=== PATIENT | male | born 1950 | race Caucasian/White ===

== ENCOUNTER 2022-05-27 04:33 | Day surgery (SDC) | payer OTHER, BC ==
[2022-05-25 14:34] VITALS: BMI 31.4
[2022-05-27 12:33] VITALS: TEMP 97
[2022-05-27 13:19] VITALS: BP 113/50; PULSE 72; RESP 18
== END 2022-05-27 13:25 | disposition home or self-care (01) ==
LOC: JASU-ENDO 04:33
PROVIDERS: ATTEND Internal Medicine Gastroenterology
PROC: 0DB98ZX Excision of Duodenum, Via Natural or Artificial Opening Endoscopic, Diagnostic (ICD-10-PCS; 2022-05-27)
PROC: 0DB68ZX Excision of Stomach, Via Natural or Artificial Opening Endoscopic, Diagnostic (ICD-10-PCS; 2022-05-27)
PROC: 0DB78ZX Excision of Stomach, Pylorus, Via Natural or Artificial Opening Endoscopic, Diagnostic (ICD-10-PCS; 2022-05-27)
PROC: 0DBM8ZX Excision of Descending Colon, Via Natural or Artificial Opening Endoscopic, Diagnostic (ICD-10-PCS; principal; 2022-05-27 10:45)
DX: D12.4 Benign neoplasm of descending colon (principal); K63.3 Ulcer of intestine; K29.50 Unspecified chronic gastritis without bleeding
CPT/HCPCS: 88305-TC; 88342-TC

== ENCOUNTER 2022-08-03 06:16 | Day surgery (SDC) | payer OTHER, BC ==
[2022-07-28 14:31] VITALS: BMI 31.3
[2022-08-03] MEDS ORDERED: ceFAZolin SODIUM 1 GM VIAL ONE ×2 (07:02→07:47)
[2022-08-03] MEDS ORDERED: LIDOCAINE 1%-EPI 1:100,000 30 ML MDV IJ ONE (07:03)
[2022-08-03] MEDS ORDERED: BUPIVACAINE HCL 50 ML ONE (07:03)
[2022-08-03] MEDS ORDERED: ERYTHROMYCIN 0.5% OPHTHALMIC OINTMENT 3.5 GM TUBE ONE (07:03)
[2022-08-03] MEDS ORDERED: POVIDONE-IODINE 5% OPHTHALMIC PREP 30 ML SOLUTION ONE ×2 (07:03→07:34)
[2022-08-03] MEDS ORDERED: TETRACAINE 0.5% OPHTH SOLN 2 ML BOTTLE ONE (07:03)
[2022-08-03] MEDS ORDERED: PROPOFOL 20 ML ONE ×2 (07:34→08:16)
[2022-08-03] MEDS ORDERED: MIDAZOLAM HCL 2 MG/2 ML SINGLE DOSE VIAL ONE ×2 (07:34→08:49)
[2022-08-03] MEDS ORDERED: DEXAMETHASONE SOD PHOSPHATE 4 MG/1 ML VIAL ONE (07:47)
[2022-08-03] MEDS ORDERED: ONDANSETRON 4 MG/2 ML VIAL ONE (07:47)
[2022-08-03] MEDS ORDERED: GLYCOPYRROLATE 0.2 MG/1 ML VIAL ONE (08:06)
[2022-08-03] MEDS ORDERED: oxyCODONE HCL 5 MG TABLET PO PRN (09:11)
[2022-08-03] MEDS ORDERED: ONDANSETRON 4 MG/2 ML VIAL IVPUSH PRN (09:11)
[2022-08-03] MEDS ORDERED: LACTATED RINGERS SOLUTION 1,000 ML IV SCH (09:15)
[2022-08-03 10:17] VITALS: RESP 16; TEMP 97.7
[2022-08-03 10:47] VITALS: BP 117/49; PULSE 67
== END 2022-08-03 11:00 | disposition home or self-care (01) ==
LOC: FASU 06:16
PROVIDERS: ATTEND Ophthalmology
PROC: 0KR Muscles, Replacement (ICD-10-PCS; 2022-08-03)
PROC: 08SQ0ZZ Reposition Right Lower Eyelid, Open Approach (ICD-10-PCS; principal; 2022-08-03 08:04)
DX: C44.1122 Basal cell carcinoma of skin of right lower eyelid, including canthus (principal)
CPT/HCPCS: 88304-TC; 88305-TC; 94760

== ENCOUNTER 2024-02-01 06:21 | Day surgery (SDC) | payer OTHER, BC ==
[2024-01-26 12:58] VITALS: BMI 31.7
[2024-02-01] MEDS: TROPICAMIDE 1% OPHTH SOLN 15 ML BOTTLE ONE (06:45)
[2024-02-01] MEDS: CYCLOPENTOLATE 2% OPHTH SOLN 2 ML BOTTLE ONE (06:45)
[2024-02-01] MEDS: PHENYLEPHRINE 2.5% OPTHALMIC DROP 2ML BOTTLE ONE (06:45)
[2024-02-01] MEDS: CIPROFLOXACIN 0.3% EYE DROPS 5 ML BOTTLE ONE (06:45)
[2024-02-01] MEDS ORDERED: EPINEPHrine/PF 1 MG/1 ML (1:1,000) AMPULE ONE (07:21)
[2024-02-01] MEDS ORDERED: LIDOCAINE 1% P/F 10 MG/ML VIAL ONE (07:21)
[2024-02-01] MEDS ORDERED: BSS (NA/CA/MG/K) BALANCED SALT SOLUTION OPHTH SOLN 15 ML BOTTLE ONE (07:21)
[2024-02-01] MEDS ORDERED: TETRACAINE 0.5% OPHTH SOLN 2 ML BOTTLE ONE (07:21)
[2024-02-01] MEDS ORDERED: NEO/POLYMYX B SULF/DEXAMETH OPHTHALMIC 5ML BOTTLE ONE (07:22)
[2024-02-01] MEDS ORDERED: CARBACHOL 0.01% INTRA-OCULAR 1.5 ML VIAL ONE (07:22)
[2024-02-01] MEDS ORDERED: MIDAZOLAM HCL 2 MG/2 ML SINGLE DOSE VIAL ONE (08:02)
[2024-02-01 08:55] VITALS: RESP 18; TEMP 97.8
[2024-02-01 09:11] VITALS: BP 129/60; PULSE 74
== END 2024-02-01 09:20 | disposition home or self-care (01) ==
LOC: FASU 06:21
PROVIDERS: ATTEND Ophthalmology
PROC: 08RJ3JZ Replacement of Right Lens with Synthetic Substitute, Percutaneous Approach (ICD-10-PCS; principal; 2024-02-01 08:16)
DX: H26.8 Other specified cataract (principal)
CPT/HCPCS: 66984; V2632

== ENCOUNTER 2024-02-29 10:28 | Day surgery (SDC) | payer OTHER, BC ==
[2024-02-27 11:30] VITALS: BMI 31.7
[2024-02-29] MEDS ORDERED: TETRACAINE 0.5% OPHTH SOLN 2 ML BOTTLE ONE (10:57)
[2024-02-29] MEDS ORDERED: BSS (NA/CA/MG/K) BALANCED SALT SOLUTION OPHTH SOLN 15 ML BOTTLE ONE (10:57)
[2024-02-29] MEDS ORDERED: NEO/POLYMYX B SULF/DEXAMETH OPHTHALMIC 5ML BOTTLE ONE (10:57)
[2024-02-29] MEDS ORDERED: CARBACHOL 0.01% INTRA-OCULAR 1.5 ML VIAL ONE (10:57)
[2024-02-29] MEDS ORDERED: LIDOCAINE 1% P/F 10 MG/ML VIAL ONE (10:57)
[2024-02-29] MEDS: CIPROFLOXACIN 0.3% EYE DROPS 5 ML BOTTLE ONE (11:15)
[2024-02-29 11:18] VITALS: RESP 18
[2024-02-29] MEDS: CYCLOPENTOLATE 2% OPHTH SOLN 2 ML BOTTLE ONE (11:20)
[2024-02-29] MEDS: PHENYLEPHRINE 2.5% OPTHALMIC DROP 2ML BOTTLE ONE (11:20)
[2024-02-29] MEDS: TROPICAMIDE 1% OPHTH SOLN 15 ML BOTTLE ONE (11:20)
[2024-02-29] MEDS ORDERED: PHENYLEPHRINE/KETOROLAC 4 ML VIAL IO ONE (12:43)
[2024-02-29 13:31] VITALS: BP 126/76; TEMP 98.3
[2024-02-29 13:36] VITALS: PULSE 71
== END 2024-02-29 13:45 | disposition home or self-care (01) ==
LOC: FASU 10:28
PROVIDERS: ATTEND Ophthalmology
PROC: 08RK3JZ Replacement of Left Lens with Synthetic Substitute, Percutaneous Approach (ICD-10-PCS; principal; 2024-02-29 12:52)
DX: H26.8 Other specified cataract (principal)
CPT/HCPCS: 66984; V2632; J1097